=== PATIENT | male | born 1980 | race Caucasian/White ===

== ENCOUNTER 2020-04-03 07:42 | Emergency (ER) | payer OTHER ==
--- NOTE | 2020-04-03 11:31 | ER Document Report ---
ED General - General Chief Complaint: Toothache Stated Complaint: TOOTH PAIN,FACIAL SWELLING TRAVEL OUTSIDE OF THE [place] IN LAST 30 DAYS: No - HPI Notes: Chief Complaint: Dental pain Historian: History obtained from patient HPI: This is a 31-year male presents to the ER complaining of left lower dental pain and swelling. This began about 3 to 4 days ago. Patient denies any drainage in his mouth. He is tolerating p.o. intake. No fevers chills nausea vomiting. Patient is nondiabetic. No shortness of breath or trouble swallowing. ROS: Constitutional: no fevers. HEENT: left dental pain- lower CV: no chest pain or palpitations. Resp: no cough or SOB. GI: no abdominal pain, or n/v/d. : no dysuria, hematuria, or incont. MSK: no back pain, no joint swelling/redness. Skin: no rashes or itching. Neuro: no seizures, weakness, numbness, or confusion. Hematological: no ecchymosis or easy bleeding. Endocrine: no polyuria/polydipsia, no heat/cold intolerance. Psych: no SI/HI, AH/VH or memory loss. PMHx: Reviewed and agree as charted by RN. PSHx: Reviewed and agree as charted by RN. SOCHx: Reviewed and agree as charted by RN. FHX: No significant familial comorbid conditions directly related to patient complaint Current Medications: Reviewed and agree with the patient medications as charted by the RN. Allergies: Reviewed and agree with the listed allergies as charted by the RN Physical Exam: Vitals: Reviewed in chart as documented by RN. General: Alert and in NAD. Head: Normocephalic; atraumatic Eyes: PERRLA, Conjunctivae clear sclerae non-icteric bilat ENT: mouth- left lower gingival and facial swelling, ttp. no drainage or fluctuance visualized. no sublingual edema. swelling extends to left submandibular area but does not extend to submental or neck. controlling secretions well. no trismus. Neck: trachea midline, no unilateral swelling/tenderness/lymphadenopathy CV: RRR, no M/R/G; symmetric distal pulses Resp: respirations even and unlabored, CTA bilat. GI: abd soft and nondistended. NTTP. normal BS. no masses/HSM. no CVAT bilat MSK: FROM of all extremities. No midline CTL spine tenderness/deformity Skin: warm, moist, good turgor. no rash/lesions Neuro: Alert and oriented X 4. following CN 2-12 intact. no unilateral weakness/numbness Psych: No SI/HI or AH/VH. Medical Decision-Making: Presentation is most consistent with likely an infected tooth. Airway is patent. Vitals within normal limits. Patient is able swallow without any difficulty. Pt has some focal left lower facial swelling but no sublingual/submental extension- no concern for deep space infection. No evidence of [place] angina, apical abscess, or airway obstruction. I dont feel he has any abscess amenable to I&D. Patient will be started on antibiotics. pt is to follow up in the ER immediately if he has any worsening symptoms- this was stressed to him multiple times. I've instructed to follow-up with dentistry as earliest ability for definitive management. At this time will discharge with return precautions and follow-up recommendations. Verbal discharge instructions given a the bedside and opportunity for questions given. Medication warnings reviewed. Patient is in agreement with this plan and has verbalized understanding of return precautions and the need for primary care follow-up in the next 24-72 hours. - Related Data Allergies/Adverse Reactions: No Known Allergies Allergy (Verified 09/01/14 13:14) Past Medical History - Social History Smoking Status: Current Every Day Smoker Chew tobacco use (# tins/day): No Frequency of alcohol use: Rare Drug Abuse: None Family History: Reviewed & Not Pertinent Psychiatric Medical History: Reports: Hx Bipolar Disorder, Hx Depression, Hx Post Traumatic Stress Disorder - Immunizations Hx Diphtheria, Pertussis, Tetanus Vaccination: Yes Physical Exam - Vital signs Vitals: Temp Pulse Resp BP Pulse Ox 98.3 F 79 20 141/98 H 99 04/03/20 07:49 04/03/20 07:49 04/03/20 07:49 04/03/20 07:49 04/03/20 07:49 Course - Vital Signs Vital signs: Temp Pulse Resp BP Pulse Ox 98.3 F 79 20 141/98 H 99 04/03/20 07:49 04/03/20 07:49 04/03/20 07:49 04/03/20 07:49 04/03/20 07:49 - Laboratory Results Critical Laboratory Results Reviewed: No Critical Results - Radiology Results Critical Radiology Results Reviewed: No Critical Results Discharge - Discharge Clinical Impression: Dental infection Condition: Stable Disposition: HOME, SELF-CARE Instructions: Toothache ([facility]) Additional Instructions: reteurn to the ER if your condition worsens. do warm compresses. continue motrin. follow up with your dentist. Prescriptions: Clindamycin HCl 300 mg PO Q6H #40 capsule
[2020-04-03] MEDS ORDERED: HYDROCODONE/ACETAMINOPHEN 5-325 MG (6 TAB/ER DISP) PO PRN (11:35)
[2020-04-03 11:42] VITALS: BP 159/102
== END 2020-04-03 11:39 | disposition home or self-care (01) ==
LOC: ER 07:42
DX: K04.7 Periapical abscess without sinus (principal); K08.89 Other specified disorders of teeth and supporting structures; R22.0 Localized swelling, mass and lump, head; F17.200 Nicotine dependence, unspecified, uncomplicated
CPT/HCPCS: 99284